=== PATIENT | female | born 1980 | race Caucasian/White ===

== ENCOUNTER 2023-09-10 19:52 | Emergency (ER) | payer MEDICAID ==
[~2023-09-10] VITALS: Ht 162.6 cm; Wt 62.0 kg
[2023-09-10 20:10] VITALS: BP 133/95; PULSE 97; RESP 16; TEMP 98.8; O2SAT 97
[2023-09-10] MEDS ORDERED: KETOROLAC 30MG/ML VIAL IM ONE (20:45)
[2023-09-10] MEDS ORDERED: NAPR-1176 MT (21:45)
[2023-09-10] MEDS ORDERED: LIDO700A15 TP (21:45)
== END 2023-09-10 23:01 | disposition home or self-care (01) ==
LOC: ER 19:52
DX: M94.0 Chondrocostal junction syndrome [Tietze] (principal); E11.9 Type 2 diabetes mellitus without complications; I10 Essential (primary) hypertension
CPT/HCPCS: 71045; 99283